=== PATIENT | female | born 1980 | race Caucasian/White ===

== ENCOUNTER 2018-07-27 12:21 | Inpatient (IN) | payer OTHER ==
[~2018-07-27] VITALS: Ht 180.3 cm; Wt 166.5 kg
--- NOTE | ~2018-07-27 | WRIGHTHP ---
[place], [place] PATIENT HISTORY AND PHYSICAL EXAM NAME: CHET GONZALEZ UNIT #: [id number] ROOM: 412 DOCTOR: JESU OCHOAYARED BIRTHDATE: [birth year] DOS: 07/27/2018 HISTORY OF PRESENT ILLNESS: The patient is 37 years old. The patient comes in with complaints of not feeling good, disorientation for the last several days. The patient states that she has increased symptoms of dysuria and increased urinary frequency. She was seen by her PCP, was placed on Macrodantin, but did not get any better. She continued to get worse, so she came back to the Emergency Room. She denies having any chest pains, palpitations, does not have any fever or chills, does not have any abdominal pain, but when she arrived at the Emergency Room, she had lactic acid elevation, she was tachycardic with a heart rate of 130, so therefore was admitted with diagnosis of sepsis. This morning, she feels a little bit better, but still not herself yet. PAST MEDICAL HISTORY: Significant for major depression, mild. She has not had any surgeries or any hospitalizations. MEDICATIONS: Fluoxetine 20, Cymbalta 60 and pramipexole 0.5 at bedtime. SOCIAL HISTORY: Nonsmoker, does not use any alcohol. Lives at home. She is a stay at home mom. She has one child, who is 6 years old. PHYSICAL EXAMINATION: GENERAL: She is awake and alert and oriented. VITAL SIGNS: Blood pressure is 148/82, pulse of 107, respirations 20, temperature 97.9. LUNGS: Diminished breath sounds. Clear. HEART: Regular. ABDOMEN: Obese, soft, nontender. EXTREMITIES: Without any edema. LABORATORY DATA: Urine culture shows no bacterial growth. Lactic acid is 2.3. Chest x-ray shows no pulmonary disease. ASSESSMENT AND PLAN: 1. The patient presents with dysuria, increased urinary frequency, tachycardia, elevated white cell count and some encephalopathy changes is most likely from underlying urinary tract infection with sepsis. Urine culture and blood cultures have been sent. IV antibiotics started along with IV fluids. CT of the abdomen and pelvis ordered. 2. Major depression, on medications, which are continued. [place], [place] PATIENT HISTORY AND PHYSICAL EXAM NAME: CHET GONZALEZ UNIT #: [id number] ROOM: [facility] DOCTOR: YARED NAILS MD BIRTHDATE: [birth year] YARED NAILS MD CM:HISPHYS:PATIENT HISTORY AND PHYSICAL EXAMINATION 1 7 YARED NAILS MD 07/28/1848 interface
--- NOTE | ~2018-07-27 | PR ---
[place], [place] PROGRESS NOTE NAME: CHET GONZALEZ UNIT #: [id number] ROOM: 412 DOCTOR: YARED NAILS MD BIRTHDATE: [birth year] DOS: SUBJECTIVE: The patient is feeling good and is not having any complaints this morning. OBJECTIVE: VITAL SIGNS: Pressure 133/84, pulse of 90, respirations 18, temperature 98.7. LUNGS: Clear. HEART: Regular. ABDOMEN: Obese, soft. EXTREMITIES: Without any edema. LABORATORY DATA: Urine culture shows no bacterial growth. Blood cultures preliminary filed shows no bacterial growth. ASSESSMENT AND PLAN: 1. The patient who presents with some degree of encephalopathy with increased urinary frequency, tachycardia, possible sepsis with urinary tract infection. Blood cultures and urine cultures have so far come back negative. CT of the abdomen and pelvis also is negative except for hepatic steatosis. The patient is stable and the plan is therefore to discharge her to home today. 2. Hepatic steatosis. Advised the patient about findings and the need to lose weight. YARED NAILS MD CM:PNTRANS 4 29 YARED NAILS MD 07/29/182130 interface
--- NOTE | ~2018-07-27 | EKG ---
[place], [place] ELECTROCARDIOGRAM REPORT NAME: CHET GONZALEZ UNIT #: [id number] ROOM: 412 DOCTOR: ELVIN DRAFT REPORT BIRTHDATE: [birth year] [facility] Test Date: 2018-07-27 Test Time: 12:27:19 Pat Name: CHET GONZALEZ Department: Room: 412 Gender: F Salt Maker: : 1980 Requested By: GISSELLE GALO Order Number: [id number] Reading MD: Rocco Melo Measurements Intervals [place] Rate: 125 P: 15 IN: 103 QRS: 50 QRSD: 80 T: 145 QT: 398 QTc: 574 Interpretive Statements Sinus tachycardia Low voltage, precordial leads Borderline T abnormalities, diffuse leads Prolonged QT interval Baseline wander in lead(s) III,V3 Electronically Signed On 07-31-2018 5:43:49 PDT by Rocco Melo CM:EKGRPT:ELECTROCARDIOGRAM REPORT [id number] GISSELLE OCONNOR DRAFT REPORT GISSELLE COX
--- NOTE | ~2018-07-27 | DS ---
[place], [place] DISCHARGE SUMMARY NAME: CHET GONZALEZ UNIT #: [id number] ROOM: 412 DOCTOR: YARED NAILS MD BIRTHDATE: [birth year] DOS: 07/29/2018 DIAGNOSES: 1. Possible urinary tract infection with sepsis, this was ruled out with negative cultures. 2. Hepatic steatosis. 3. Morbid obesity. 4. Tachycardia, possibly from deconditioning. 5. Major depression. MEDICATIONS: Same as on home medications, which include fluoxetine, Cymbalta, pramipexole and only new prescription given was Ceftin 250 twice daily for 5 days. HOSPITAL COURSE: The patient comes in with complaints of dysuria, some disorientation and not feeling good. She had seen her doctor, was placed on Macrodantin, continued to have dysuria, came into the Emergency Room, she was tachycardic. Lactic acid elevation of 2.3. The patient was admitted. After admission, her symptoms seem to be resolving. Lactic acid has levels of normal. White cell count has come down. Basic metabolic panel within normal limits. The patient is improved. A CT of the abdomen and pelvis was done, which did not show any pathology other than hepatic steatosis, diffuse and severe. The patient's tachycardia has slowed down into the low 90s, may benefit from an echo as an outpatient if this continues to be a problem, but I believe the patient is deconditioned and may be responsible for her current tachycardia. The patient is stable this morning. The plan is to discharge her to home. Follow up with the PCP. YARED NAILS MD CM:DISCHARG [id number] YARED NAILS MD 07/29/18 1602 interface
--- NOTE | ~2018-07-27 | EKG ---
[place], [place] ELECTROCARDIOGRAM REPORT NAME: CHET GONZALEZ UNIT #: [id number] ROOM: 412 DOCTOR: ELVIN DRAFT REPORT BIRTHDATE: [birth year] [facility] Test Date: 2018-07-27 Test Time: 15:08:36 Pat Name: CHET GONZALEZ Department: Room: 412 Gender: F Consumer Attorney: Skye Rock : 1980 Requested By: GISSELLE GALO Order Number: [id number] Reading MD: Rocco Melo Measurements Intervals [place] Rate: 101 P: 42 MT: 149 QRS: 34 QRSD: 87 T: 24 QT: 357 QTc: 463 Interpretive Statements Sinus tachycardia Low voltage, precordial leads Electronically Signed On 07-31-2018 5:44:37 PDT by Rocco Melo CM:EKGRPT:ELECTROCARDIOGRAM REPORT [id number] GISSELLE OCONNOR DRAFT REPORT GISSELLE COX
[~2018-07-27 12:21] MED LIST: ANUSOL-HC25 MG RC; HYDROCODONE BIT1 T11; IBUPROFEN600 MG; IRON325 M1 PO; Miralax Powder255 GM PO; PRENATAL1 TA2; STOOL SOFTENER100 M1
--- NOTE | 2018-07-27 13:00 | NUR ---
LAB CALLED WITH CRITICAL LACTIC OF 2.3
[2018-07-27 13:05] LABS: ACT PARTIAL THROMBO TIME 24.4 SECONDS (20.8-31.5); INTERNATIONAL NORM RATIO 0.9 (2.0-3.5)
[2018-07-27 13:28] LABS: BILIRUBIN 2+ (NEGATIVE); BLOOD NEGATIVE (NEGATIVE); CLARITY SL CLOUDY (CLEAR); COLOR ORANGE (YELLOW); GLUCOSE 1+ (NEGATIVE); KETONE TRACE (NEGATIVE); NITRITE POSITIVE (NEGATIVE)
[2018-07-27 13:37] LABS: BACTERIA 2+; EPITHELIAL CELLS 16-20; LEUKO ESTERASE TRACE (NEGATIVE)
[2018-07-27 13:43] LABS: BASO # 0.1 10*3/uL (0.0-0.1); BASO % 0.6 % (0.0-1.0); EOS # 0.1 10*3/uL (0.0-0.4); HEMATOCRIT 44.2 % (37.0-47.0); HEMOGLOBIN 14.1 g/dl (12.0-16.0); LYMPH # 2.3 10*3/uL (1.3-4.4); LYMPH % 20.2 % (27.0-41.0); MEAN CELL VOLUME 89.7 fl (81.0-99.0); MEAN CORPUSCULAR HGB 28.6 pg (27.0-31.0); MEAN CORPUSCULAR HGB CONC 31.9 g/dl (33.0-37.0); MEAN PLATELET VOLUME 9.2 fl (9.6-12.3); MONO # 0.4 10*3/uL (0.1-1.0); MONO % 3.7 % (3.0-9.0); NEUT # 8.2 10*3/uL (2.3-7.9); NEUT % 73.7 % (47.0-73.0); PLATELET COUNT AUTOMATED 354 10*3/uL (130-400); RED BLOOD COUNT 4.93 10*6/uL (4.10-5.10); RED CELL DISTRI WIDTH 13.4 % (0-14.5); WHITE BLOOD COUNT 11.1 10*3/uL (4.8-10.8)
[2018-07-27 14:01] LABS: ALBUMIN 3.6 gm/dl (3.1-4.5); ALKALINE PHOSPHATASE 154 U/L (45-117); BUN 11 mg/dl (7-24); CHLORIDE 98 mmol/L (98-107); CREATININE 1.01 mg/dL (0.55-1.02); POTASSIUM 4.5 mmol/L (3.5-5.1); SGOT/AST 40 IU/L (3-35); SGPT/ALT 70 U/L (12-78); SODIUM 135 mmol/L (136-145); TOTAL PROTEIN 7.9 gm/dL (6.4-8.2)
[2018-07-27 14:12] LABS: TROPONIN I < 0.015 ng/ml (<0.045)
[2018-07-27 14:28] VITALS: BP 130/80
[2018-07-27] MEDS ORDERED: CIPRO500 MG PO (15:37)
[2018-07-27] MEDS ORDERED: PYRIDIUM200 M1 PO (15:37)
[2018-07-27 15:54] VITALS: BP 147/90
--- NOTE | 2018-07-27 17:00 | NUR ---
PATIENT TAKEN TO 4TH FLOOR AT THIS TIME BY THIS NURSE. BEDSIDE REPORT GIVEN TO JIMMY ESPINOZA.
[2018-07-27 17:13] VITALS: BP 132/85
--- NOTE | 2018-07-27 17:19 | NUR ---
CCA 37, admitted to , under the services of YARED Em MD with a diagnosis of UTI. Chief complaint is UTI. Patient arrived via ambulatory from ER. Monitor applied. Initial assessment completed. Vital signs taken and recorded. YARED EM MD notified of admission to the unit. Orders received. See assessment for past medical history, medications and allergies. Patient and/or family oriented to unit. [facility] reviewed. Clothing/patient valuable form completed. JIMMY DIAS
[2018-07-27] MEDS ORDERED: CYMBALTA60 MG PO (17:21)
[2018-07-27] MEDS ORDERED: MIRAPEX0.5 MG PO (17:22)
[2018-07-27] MEDS ORDERED: PROZAC20 MG PO (17:22)
[2018-07-27 20:00] VITALS: BP 134/85
[2018-07-28] VITALS: BP 148/82
--- NOTE | 2018-07-28 00:03 | NUR ---
24 HR chart check completed.
--- NOTE | 2018-07-28 01:27 | NUR ---
PYRIDIUM GIVEN PER ORDER FOR COMPLAINTS OF BLADDER PAIN. WILL REASSESS.
--- NOTE | 2018-07-28 02:43 | NUR ---
PYRIDIUM EFFECTIVE FOR BLADDER DISCOMFORT. PT RESTING COMFORTABLY.
[2018-07-28 06:30] LABS: BASO # 0.1 10*3/uL (0.0-0.1); BASO % 0.7 % (0.0-1.0); EOS # 0.2 10*3/uL (0.0-0.4); EOS % 1.7 % (1.0-4.0); HEMOGLOBIN 12.8 g/dl (12.0-16.0); LYMPH # 2.6 10*3/uL (1.3-4.4); LYMPH % 23.3 % (27.0-41.0); MEAN CELL VOLUME 90.5 fl (81.0-99.0); MEAN CORPUSCULAR HGB 28.3 pg (27.0-31.0); MEAN CORPUSCULAR HGB CONC 31.2 g/dl (33.0-37.0); MEAN PLATELET VOLUME 9.1 fl (9.6-12.3); MONO # 0.6 10*3/uL (0.1-1.0); MONO % 5.1 % (3.0-9.0); NEUT # 7.5 10*3/uL (2.3-7.9); NEUT % 68.4 % (47.0-73.0); PLATELET COUNT AUTOMATED 336 10*3/uL (130-400); RED BLOOD COUNT 4.53 10*6/uL (4.10-5.10); RED CELL DISTRI WIDTH 13.7 % (0-14.5)
[2018-07-28 06:51] LABS: BUN 14 mg/dl (7-24); CHLORIDE 103 mmol/L (98-107); CREATININE 0.97 mg/dL (0.55-1.02); POTASSIUM 4.2 mmol/L (3.5-5.1); SODIUM 138 mmol/L (136-145)
[2018-07-28 08:00] VITALS: BP 136/78
--- NOTE | 2018-07-28 09:00 | NUR ---
Early Childhood Worker in to talk to patient. Patient states lives at home with her and son. There are 12 steps in the home. Physician: Dr. Andre Atkins Pharmacy: [facility] in [place] Home health services: none Patient's level of ADLs: INDEPENDENT Patient has working utilities: yes DME: none Follow-up physician's appointment after d/c: she prefers to make her own follow up appt after discharge Does patient want to access PORTAL?: no Discharge plan discussed with patient. She lives at home with her and son. She is independent in her ADLs and ambulation. Discussed home health care services and she denies any home needs at this time. When medically stable she will be discharged to home. ALMA DELIA ROMANO
--- NOTE | 2018-07-28 09:05 | NUR ---
DR NAILS ROUNDED AND SEEN PT. ORDERS RECIEVED.
[2018-07-28 12:00] VITALS: BP 138/83
--- NOTE | 2018-07-28 13:47 | NUR ---
Patient resting quietly with no c/o discomfort. Respirations easy and regular. Vital signs stable. No overt distress. MAY FRANCIS
[2018-07-28 16:00] VITALS: BP 139/83
[2018-07-28 20:00] VITALS: BP 131/93; BP 152/78
--- NOTE | 2018-07-28 21:22 | NUR ---
PATIENT REQUESTING MEDICATION FOR HEADACHE. TYLENOL ADMINISTERED PRESCRIBED. WILL MONITOR FOR EFFECTIVENESS.
--- NOTE | 2018-07-28 22:22 | NUR ---
PATIENT STATES THAT HEADACHE IS GONE AFTER ADMINISTRATION OF TYLENOL.
[2018-07-29] VITALS: BP 133/84
--- NOTE | 2018-07-29 00:27 | NUR ---
24 HR chart check completed.
--- NOTE | 2018-07-29 03:05 | NUR ---
PATIENT RESTING WITH EYES CLOSED AT THIS TIME. RESPIRATIONS EASY AND UNLABORED ON ROOM AIR. IVF CONTINUE TO INFUSE. CALL [facility] WITHIN REACH.
[2018-07-29 08:00] VITALS: BP 120/86
[2018-07-29] MEDS ORDERED: CEFUROXIME AXE250 MG PO (08:16)
--- NOTE | 2018-07-29 08:43 | NUR ---
Discharge instructions reviewed with patient. Patient receptive and verbalizes understanding. Follow-up care arranged. Written instructions given to patient. PATIENT DISCHARGED TO ER [facility], AMBULATORY, FOR TRANSPORT HOME BY PRIVATE VEHICLE. SUNNY GUZMAN
== END 2018-07-29 08:43 | disposition home or self-care (01) | DRG 309 ==
LOC: ED 12:21 → 4E 15:57 → EDHOLD 15:57 → 4E 16:24
PROVIDERS: Physician Assistant; ADMIT Internal Medicine
DX: R00.0 Tachycardia, unspecified (principal); G93.40 Encephalopathy, unspecified; Z68.43 Body mass index [BMI] 50.0-59.9, adult; R30.0 Dysuria; Z83.3 Family history of diabetes mellitus; K76.0 Fatty (change of) liver, not elsewhere classified; D72.829 Elevated white blood cell count, unspecified; E66.01 Morbid (severe) obesity due to excess calories; F32.9 Major depressive disorder, single episode, unspecified; Z88.2 Allergy status to sulfonamides; Z98.891 History of uterine scar from previous surgery

== ENCOUNTER → 2019-10-12 | Outpatient (CLI) | payer OTHER ==
[~2019-10-12] MED LIST changes: +CEFUROXIME AXE250 MG PO; +CIPRO500 MG PO; +CYMBALTA60 MG PO; +MIRAPEX0.5 MG PO; +PROZAC20 MG PO; +PYRIDIUM200 M1 PO
== END | disposition home or self-care (01) ==
LOC: US 08:19
DX: K76.0 Fatty (change of) liver, not elsewhere classified (principal)